=== PATIENT | female | born 1990 | race American Indian/Alaskan Native ===

== ENCOUNTER 2016-07-30 20:00 | Emergency (ER) | payer MEDICAID ==
[2016-07-30 22:05] LABS: Basophils % (Auto) 0.2 % (0.0-1.8); Eosinophils % (Auto) 0.3 % (0.0-4.3); Hematocrit 39.6 % (30.3-42.9); Hemoglobin 13.3 gm/dl (10.1-14.3); Mean Corpuscular HGB Conc 34 % (30-34); Mean Corpuscular Hemoglobin 29 pg (28-32); Mean Corpuscular Volume 85 fl (79-97); Platelet Count 276 K/mm3 (140-440); Red Blood Count 4.65 M/mm3 (3.65-5.03); Red Cell Distribution Width 14.8 % (13.2-15.2)
[2016-07-30 22:25] LABS: Anion Gap 18 mmol/L; Blood Urea Nitrogen 4 mg/dL (7-17); Calcium 9.7 mg/dL (8.4-10.2); Carbon Dioxide 20 mmol/L (22-30); Chloride 101.6 mmol/L (98-107); Glucose 85 mg/dL (65-100); Sodium 136 mmol/L (137-145)
--- NOTE | 2016-07-31 00:21 | Ultrasound Report ---
FINAL REPORT PROCEDURE: US OB \T\gt; = 14 WEEKS FETUS TECHNIQUE: Real-time limited sonographic examination was performed for evaluation of size, position, heartbeat, fluid volume for each fetus with image documentation (1 or more fetuses). CPT 99729 HISTORY: ABDOMINAL PAIN COMPARISON: No prior studies are available for comparison. FINDINGS: MATERNAL Uterus: Within normal limits . Cervix length: 4.3 cm. Internal Os: Closed . FETUS IUP: Single living intrauterine . Position: Breech. Placental position: Anterior, no previa, the placenta is low-lying. Amniotic fluid volume: Normal . Heart rate and rhythm: 153 BPM, Regular . anatomic survey: Not completed on this study. MEASUREMENTS BPD: 3.4 centimeter. HC: 13.5 centimeter. AC: 11.1 centimeter. FL: 2.6 centimeter. Mean Gestational Age (composite criteria): 17 weeks 0 days. Ratio biometry: Normal . Estimated Weight: 188 grams. Interval growth: No prior study. Estimated Due Date (earliest scan): 01/07/2017. IMPRESSION: 1. Single living intrauterine gestation at approximately 17 weeks 0 days. 2. EDC by US 01/07/2017.
[2016-07-31 01:18] LABS: Bacteria,Urine 2+ /HPF (Negative); Bilirubin,Urine NEG (Negative); Blood,Urine NEG (Negative); Ketones,Urine 20 mg/dL (Negative); Leukocyte Esterase,Urine LG (Negative); Mucus,Urine 2+ /HPF; Nitrite,Urine NEG (Negative); Urobilinogen,Urine < 2.0 mg/dL (<2.0)
--- NOTE | 2016-07-31 06:49 | Emergency Department Report ---
ED Dizziness HPI - General Chief Complaint: Dizziness Stated Complaint: LIGHT HEADED/DIZZINESS Time Seen by Provider: 07/31/16 06:38 Source: patient, RN notes reviewed Mode of arrival: Stretcher Limitations: No Limitations - History of Present Illness Initial Comments: 26-year-old female presents to the emergency department complaining of patient states she was at work yesterday evening at approximately 6:30 PM she began feeling extremely hot and then became lightheaded. Patient denies losing consciousness. Patient's symptoms resolved shortly afterward. Patient is approximately 17 weeks (A1) and came to the emergency department for further evaluation. She denies abdominal pain, nausea, vomiting, vaginal bleeding, vaginal discharge. There are no other complaints. MD Complaint: lightheadedness, near syncope -: Sudden, Last night Time: 18:30 Timing: sudden onset Description: lightheadedness History of Same: No History of Trauma: No Severity: mild Improves With: rest Worsens With: nothing Associated Symptoms: denies other symptoms - Related Data Previous Rx's Medication Instructions Recorded Last Taken Type Acetaminophen/Codeine 1 tab PO Q6H PRN #15 tab 05/02/14 Unknown Rx [Acetaminophen-Codeine #3 TAB] Cyclobenzaprine [Flexeril 10mg] 10 mg PO TID PRN #10 tablet 05/02/14 Unknown Rx Ibuprofen [Motrin] 800 mg PO Q8H PRN #20 tablet 05/02/14 Unknown Rx Allergies Allergy/AdvReac Type Severity Reaction Status Date / Time No Known Allergies Allergy Unverified 05/02/14 17:10 ED Review of Systems ROS: Stated complaint: LIGHT HEADED/DIZZINESS Other details as noted in HPI Comment: All other systems reviewed and negative Cardiovascular: syncope (lightheadedness, no loss of consciousness) ED Past Medical Hx - Past Medical History Previous Medical History?: No - Surgical History Past Surgical History?: No - Family History Family history: no significant - Social History Smoking Status: Never Smoker Substance Use Type: None - Medications Home Medications: Home Medications Medication Instructions Recorded Confirmed Last Taken Type Acetaminophen/Codeine 1 tab PO Q6H PRN #15 tab 05/02/14 Unknown Rx [Acetaminophen-Codeine #3 TAB] Cyclobenzaprine [Flexeril 10mg] 10 mg PO TID PRN #10 tablet 05/02/14 Unknown Rx Ibuprofen [Motrin] 800 mg PO Q8H PRN #20 tablet 05/02/14 Unknown Rx ED Physical Exam - General Limitations: No Limitations General appearance: alert, in no apparent distress - Head Head exam: Present: atraumatic, normocephalic - Eye Eye exam: Present: normal appearance, PERRL, EOMI - ENT ENT exam: Present: normal exam, normal orophraynx, mucous membranes moist - Neck Neck exam: Present: normal inspection, full ROM. Absent: tenderness - Respiratory Respiratory exam: Present: normal lung sounds bilaterally. Absent: respiratory distress - Cardiovascular Cardiovascular Exam: Present: regular rate, normal rhythm, normal heart sounds - GI/Abdominal GI/Abdominal exam: Present: soft, normal bowel sounds. Absent: distended, tenderness - Extremities Exam Extremities exam: Present: normal inspection, full ROM. Absent: tenderness - Back Exam Back exam: Present: normal inspection, full ROM. Absent: tenderness - Neurological Exam Neurological exam: Present: alert, oriented X3. Absent: motor sensory deficit - Skin Skin exam: Present: warm, dry, intact ED Course Vital Signs 07/30/16 07/31/16 21:35 01:37 Temperature 97.9 F 98.6 F Pulse Rate 76 70 Respiratory 18 18 Rate Blood Pressure 109/67 112/64 Blood Pressure 109/67 [Left] O2 Sat by Pulse 100 100 Oximetry ED Medical Decision Making - Lab Data Result diagrams: 07/30/16 21:54 07/30/16 21:54 - EKG Data -: EKG Interpreted by Ga EKG shows normal: sinus rhythm, axis, intervals, QRS complexes, ST-T waves Rate: normal - EKG Data When compared to previous EKG there are: previous EKG unavailable Interpretation: normal EKG - Radiology Data Radiology results: report reviewed ultrasound reveals a single, live intrauterine with estimated gestation age of 17 weeks 0 days. - Medical Decision Making Lab and imaging results reviewed and discussed with the patient. Patient has remained asymptomatic in the emergency department. 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 - Differential Diagnosis near syncope, dehydration, occult infection Critical care attestation.: If time is entered above; I have spent that time in minutes in the direct care of this critically ill patient, excluding procedure time. ED Disposition Clinical Impression: Near syncope Disposition: DISCHARGED TO HOME OR SELFCARE Is pt being admited?: No Condition: Stable Instructions: Near Syncope (ED) Additional Instructions: If symptoms worsen, or if new symptoms develop, return to the emergency department. Referrals: PRIMARY CARE,MD [Primary Care Provider] - 3-5 Days Time of Disposition: 06:49
[2016-07-31 07:04] VITALS: BP 112/57
== END 2016-07-31 07:04 | disposition home or self-care (01) ==
LOC: ED 20:00
DX: R55 Syncope and collapse (principal)
CPT/HCPCS: 36415; 76805; 80048; 81001; 84702; 85025; 93005; 93010

== ENCOUNTER 2016-12-28 20:01 | Inpatient (IN) | payer MEDICAID ==
[2016-12-28] MEDS ORDERED: POLYCILLIN/NS 2 GM/100 ML 2 GM/100 ML BAG IV ONE (20:51)
[2016-12-28] MEDS ORDERED: ePHEDrine SULFATE IV PRN (20:51)
[2016-12-28] MEDS ORDERED: SUBLIMAZE IV PRN (20:51)
[2016-12-28] MEDS ORDERED: BRETHINE SUB-Q PRN (20:51)
[2016-12-28] MEDS ORDERED: XYLOCAINE 2% INFILTRATI ONE (20:51)
[2016-12-28] MEDS ORDERED: PITOCin/NS 30 UNIT/500ML 30 UNITS/500 ML BAG IV SCH (21:00)
[2016-12-28] MEDS ORDERED: PITOCin/NS 20 UNIT/1000ML DRIP 20 UNITS/1,000 ML BAG IV SCH (21:00)
[2016-12-28] MEDS ORDERED: LACTATED RINGERS 1,000 ML IV SCH (21:00)
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
[2016-12-28 21:43] LABS: Hematocrit 38.1 % (30.3-42.9); Hemoglobin 12.6 gm/dl (10.1-14.3); Mean Corpuscular HGB Conc 33 % (30-34); Mean Corpuscular Hemoglobin 28 pg (28-32); Mean Corpuscular Volume 85 fl (79-97); Platelet Count 235 K/mm3 (140-440); Red Blood Count 4.48 M/mm3 (3.65-5.03); Red Cell Distribution Width 13.6 % (13.2-15.2); White Blood Count 10.2 K/mm3 (4.5-11.0)
[2016-12-29] MEDS: POLYCILLIN/NS 1 GM/50 ML 1 GM/50 ML BAG IV SCH ×2 (01:00→04:44)
--- NOTE | 2016-12-29 03:22 | Event Note ---
Date: 12/29/16 Unable to adequately trace heart rate and contractions with external monitors. With patient's permission, IUPC and FSE applied without difficulty in order to trace heart rate and contractions. Patient requests epidural. Cervix 5/100/-1. Will allow patient to have epidural. Reassuring heart rate tracing. Patient remains afebrile and her vital signs are stable.
[2016-12-29] MEDS ORDERED: ePHEDrine SULFATE ONE (03:28)
--- NOTE | 2016-12-29 03:36 | Event Note ---
Date: 12/29/16 Pitocin decreased to 8 milliunits per minute.
--- NOTE | 2016-12-29 03:51 | Event Note ---
Date: 12/29/16 Pitocin decreased to 6 milliunits per minute.
[2016-12-29] MEDS ORDERED: NARCAN 2 MG/2 ML IV PRN (04:20)
[2016-12-29] MEDS ORDERED: ePHEDrine SULFATE IV PRN (04:20)
--- NOTE | 2016-12-29 04:22 | Anesthesia Consultation ---
Anesthesia Consult and Med Hx Date of service: 12/29/16 - Airway ROM Head & Neck: Inadequate Mental/Hyoid Distance: Adequate Intubation Access Assessment: Possibly Difficult - Pre-Operative Health Status ASA Pre-Surgery Classification: ASA3, Emergency Proposed Anesthetic Plan: Epidural, Spinal - Pulmonary Hx Asthma: No COPD: No Hx Pneumonia: No - Cardiovascular System Hx Hypertension: No - Central Nervous System Hx Seizures: No Hx Psychiatric Problems: No - Endocrine Hx Renal Disease: No Hx End Stage Renal Disease: No Hx Hypothyroidism: No Hx Hyperthyroidism: No - Hematic Hx Anemia: No Hx Sickle Cell Disease: No - Other Systems Hx Alcohol Use: No Hx Obesity: Yes (morbid)
[2016-12-29] MEDS ORDERED: fentaNYL-BUPIV 2 MCG/ML-0.125% 200 MCG/100 ML BAG EPIDURAL ONE (04:23)
[2016-12-29] MEDS ORDERED: fentaNYL-BUPIV 2 MCG/ML-0.125% 200 MCG/100 ML BAG EPIDURAL SCH (05:00)
[2016-12-29] MEDS ORDERED: TUCKS PAD TP PRN (05:45)
[2016-12-29] MEDS ORDERED: LANSINOH TP PRN (05:45)
[2016-12-29] MEDS ORDERED: TYLENOL PO PRN (05:45)
--- NOTE | 2016-12-29 05:55 | Procedure Note ---
OB Delivery Note - Vaginal Delivery presentation: vertex Delivery position: OA Intrapartum events: none Delivery augmentation: pitocin Delivery monitor: external FHT, external uterine, internal FHT, internal uterine Route of delivery: Delivery placenta: spontaneous Delivery cord: 3 umbilical vessels Episiotomy: none Delivery laceration: none Anesthesia: epidural Delivery comments: Spontaneous vaginal delivery of liveborn female weighing 5 lbs. 11.5 oz. over intact perineum with apgars of 8/9. Epidural anesthesia. Baby was placed immediately on mother's chest after . Spontaneous cry and respirations; baby was bulb suctioned, dried and stimulated. 3 vessel cord was double clamped and cut and baby was taken to warmer for further evaluation by NICU team due to small size of baby. Spontaneous delivery of intact placenta and membranes by Freitas mechanism. EBL 200 ml. Pitocin to IV fluids after delivery of placenta. Fundus firm and midline. No lacerations noted. Sponge count correct. Mother and baby stable in birthing room.
[2016-12-29] MEDS ORDERED: SODIUM CHLORIDE FLUSH SYRINGE 10 ML IV PRN (06:00)
[2016-12-29] MEDS: MOTRIN PO SCH ×2 (11:30→19:38)
[2016-12-29] MEDS ORDERED: NORCO 5/325 PO PRN (11:57)
[2016-12-29] MEDS ORDERED: Fluarix Quad 2017-2018(36 MOS+) IM ONE (12:00)
[2016-12-30] MEDS: MOTRIN PO SCH ×4 (01:30→18:57)
[2016-12-30] MEDS ORDERED: BOOSTRIX IM ONE (06:00)
[2016-12-30 07:25] LABS: Hematocrit 34.6 % (30.3-42.9); Hemoglobin 11.4 gm/dl (10.1-14.3)
--- NOTE | 2016-12-30 09:28 | Progress Note ---
Assessment and Plan A: PPD #1 stable P: Discharge home in am Subjective - Subjective Date of service: 12/30/16 Principal diagnosis: Patient reports: appetite normal Paron: doing well Objective - Vital Signs Latest vital signs: Vital Signs Temp Pulse Resp BP BP Pulse Ox 12/30/16 00:25 98.3 F 70 18 125/82 12/29/16 17:25 98.0 F 81 20 121/77 100 Intake and Output 12/29/16 12/30/16 12/30/16 22:59 06:59 14:59 Intake Total 920 480 Output Total 1100 480 Balance -180 0 Intake: Oral 920 480 Output: Urine 1100 480 Void 1100 480 Other: Total, Intake Amount 200 240 Total, Output Amount 400 240 - Exam Breasts: Present: deferred Cardiovascular: Present: Regular rate Lungs: Present: Clear to auscultation Abdomen: Present: soft Vulva: both: normal Uterus: Present: fundal height below umbilicus Extremities: Present: normal Deep Tendon Reflex Grade: Normal +2
--- NOTE | 2016-12-30 09:29 | Discharge Summary ---
Providers - Providers Date of Admission: 12/28/16 21:01 Date of discharge: 12/31/16 Attending physician: BIANCA CRUZ MD Primary care physician: BIANCA CRUZ MD Hospitalization Reason for admission: active labor Delivery: Episiotomy: none Laceration: none complications: none baby: female Condition at discharge: Good Disposition: DC-01 TO HOME OR SELFCARE Plan - Provider Discharge Summary Activity: routine, no sex for 6 weeks, no strenuous exercise Diet: routine Instructions: routine Additional instructions: [] Smoking cessation referral if applicable(refer to patient education folder for contact #) [] Refer to [facility] Booklet Call your doctor immediately for: * Fever > 100.5 * Heavy vaginal bleeding ( >1 pad per hour) * Severe persistent headache * Shortness of breath * Reddened, hot, painful area to leg or breast * Drainage or odor from incision. * Keep incision clean and dry at all times and follow doctor's instructions regarding bathing/showering - Follow up plan Follow up: BIANCA CRUZ MD [Primary Care Provider] - 6 Weeks
--- NOTE | 2016-12-30 11:49 | Progress Note ---
Subjective Date of service: 12/30/16 Principal diagnosis: Interval history: 1st day after normal vaginal delivery Patient is in the bed, comfortable. pain is well under control. Ambulated well. No residual neurological deficit. No anesthesia complications Objective - Constitutional Vitals: Vital Signs - 12hr 12/30/16 12/30/16 12/30/16 00:12 00:25 08:39 Temperature 98.3 F 97.5 F L Pulse Rate 70 77 Respiratory 18 18 Rate Blood Pressure 125/82 126/80 Blood Pressure 125/82 [Right] O2 Sat by Pulse 100 Oximetry - Labs CBC & Chem 7: 12/30/16 07:13
[2016-12-30] MEDS ORDERED: Fluarix Quad 2017-2018(36 MOS+) IM ONE (12:00)
[2016-12-30 19:14] VITALS: BP 128/78
[2016-12-31] MEDS: MOTRIN PO SCH (06:10)
== END 2016-12-31 10:00 | disposition home or self-care (01) | DRG 775 ==
LOC: TRG 20:01 → LD 21:01 → OB 12-29 08:56
PROVIDERS: ADMIT Obstetrics & Gynecology; ATTEND Obstetrics & Gynecology
PROC: 10E0XZZ Delivery of Products of Conception, External Approach (ICD-10-PCS; principal; 2016-12-29)
PROC: 3E0234Z Introduction of Serum, Toxoid and Vaccine into Muscle, Percutaneous Approach (ICD-10-PCS; 2016-12-29)
PROC: 3E0S3BZ Introduction of Anesthetic Agent into Epidural Space, Percutaneous Approach (ICD-10-PCS; 2016-12-29)
PROC: 00HU33Z Insertion of Infusion Device into Spinal Canal, Percutaneous Approach (ICD-10-PCS; 2016-12-29)
DX: O99.824 Streptococcus B carrier state complicating childbirth (principal); Z68.41 Body mass index [BMI] 40.0-44.9, adult; Z3A.39 39 weeks gestation of pregnancy; Z37.0 Single live birth; Z23 Encounter for immunization; O99.214 Obesity complicating childbirth; E66.01 Morbid (severe) obesity due to excess calories
CPT/HCPCS: 36415; 85014; 85018; 85027; 86850; 86900; 86901; 88307; 90471; 90686; J0290; J2590; J3010; J7120

== ENCOUNTER 2021-04-10 10:06 | Emergency (ER) | payer MEDICAID ==
[2021-04-10] MEDS ORDERED: SODIUM CHLORIDE 0.9% 1000 ML 1,000 ML IV ONE (12:12)
[2021-04-10] MEDS ORDERED: ONDANSETRON 4 MG/2 ML INJ IV ONE (12:12)
--- NOTE | 2021-04-10 12:15 | Emergency Department Report ---
ED General Adult HPI - General Chief complaint: Upper Respiratory Infection Stated complaint: FLU LIKE SYMPTOMS Time Seen by Provider: 04/10/21 12:02 Source: patient Mode of arrival: Ambulatory Limitations: No Limitations - History of Present Illness Initial comments: 30-year-old -[place] female patient presents with complaints of fever, cough, and nausea and vomiting for the past 5 days. She denies any hematemesis/coffee-ground emesis or abdominal pain. She reports a fever of 101.5 on Thursday/Thursday that resolved with OTC medication. No past medical history per patient. She reports she had a rapid and PCR COVID test performed that were both negative. No hemoptysis, shortness of breath, chest pain, melena/hematochezia, or urinary symptoms per patient. She also denies any past medical history. Patient states she is unable to keep any food down and feels weak from being hungry. Severity scale (0 -10): 0 - Related Data Previous Rx's Medication Instructions Recorded Last Taken Type Acetaminophen/Codeine 1 tab PO Q6H PRN #15 tab 05/02/14 Unknown Rx [Acetaminophen-Codeine #3 TAB] Cyclobenzaprine [Flexeril 10mg] 10 mg PO TID PRN #10 tablet 05/02/14 Unknown Rx Ibuprofen [Motrin] 800 mg PO Q8H PRN #20 tablet 05/02/14 Unknown Rx Benzonatate 200 mg PO TID PRN #20 cap 04/10/21 Unknown Rx Ciprofloxacin HCl 500 mg PO BID 7 Days #14 tab 04/10/21 Unknown Rx Famotidine [Pepcid] 20 mg PO BID 7 Days #14 tablet 04/10/21 Unknown Rx Ondansetron [Zofran Odt] 4 mg PO Q8HR PRN 10 Days #15 04/10/21 Unknown Rx tab.rapdis Allergies Allergy/AdvReac Type Severity Reaction Status Date / Time No Known Allergies Allergy Verified 12/28/16 20:05 ED Review of Systems ROS: Stated complaint: FLU LIKE SYMPTOMS Other details as noted in HPI Constitutional: see HPI Respiratory: see HPI Cardiovascular: as per HPI Gastrointestinal: as per HPI. denies: diarrhea Genitourinary: as per HPI Skin: denies: rash, lesions, change in color Neurological: denies: headache ED Past Medical Hx - Past Medical History Hx Hypertension: No Hx Congestive Heart Failure: No Hx Diabetes: No Hx Deep Vein Thrombosis: No Hx Renal Disease: No Hx Sickle Cell Disease: No Hx Seizures: No Hx Asthma: No Hx COPD: No Hx HIV: No - Social History Smoking Status: Never Smoker - Medications Home Medications: Home Medications Medication Instructions Recorded Confirmed Last Taken Type Acetaminophen/Codeine 1 tab PO Q6H PRN #15 tab 05/02/14 12/29/16 Unknown Rx [Acetaminophen-Codeine #3 TAB] Cyclobenzaprine [Flexeril 10mg] 10 mg PO TID PRN #10 tablet 05/02/14 12/29/16 Unknown Rx Ibuprofen [Motrin] 800 mg PO Q8H PRN #20 tablet 05/02/14 12/29/16 Unknown Rx Benzonatate 200 mg PO TID PRN #20 cap 04/10/21 Unknown Rx Ciprofloxacin HCl 500 mg PO BID 7 Days #14 tab 04/10/21 Unknown Rx Famotidine [Pepcid] 20 mg PO BID 7 Days #14 tablet 04/10/21 Unknown Rx Ondansetron [Zofran Odt] 4 mg PO Q8HR PRN 10 Days #15 04/10/21 Unknown Rx tab.rapdis ED Physical Exam - General Limitations: No Limitations General appearance: alert, in no apparent distress, obese - Head Head exam: Present: atraumatic, normocephalic - Eye Eye exam: Present: normal appearance - Neck Neck exam: Present: normal inspection - Respiratory Respiratory exam: Present: normal lung sounds bilaterally. Absent: respiratory distress - Cardiovascular Cardiovascular Exam: Present: regular rate, normal rhythm - GI/Abdominal GI/Abdominal exam: Present: soft, normal bowel sounds. Absent: distended, tenderness, guarding, rebound, rigid - Back Exam Back exam: Absent: CVA tenderness (R), CVA tenderness (L) - Neurological Exam Neurological exam: Present: alert, oriented X3, normal gait - Psychiatric Psychiatric exam: Present: normal affect, normal mood - Skin Skin exam: Present: warm, dry, intact, normal color. Absent: rash ED Course Vital Signs 04/10/21 04/10/21 04/10/21 11:50 12:24 15:51 Temperature 98.4 F 98.4 F Pulse Rate 60 64 Respiratory 16 18 Rate Blood Pressure 124/83 124/68 [Right] O2 Sat by Pulse 99 100 Oximetry ED Medical Decision Making - Lab Data Result diagrams: 04/10/21 12:16 04/10/21 12:16 - Radiology Data Radiology results: report reviewed CHEST 2 VIEWS INDICATION: cough, fever. COMPARISON: none FINDINGS: Support devices: None. Heart: Within normal limits. Lungs/pleura: No acute air space or interstitial disease. No pneumothorax. Additional findings: None. IMPRESSION: No acute findings. - Medical Decision Making 30-year-old -[place] female patient presents with complaints of fever, cough, and nausea and vomiting for the past 5 days. She denies any hematemesis/coffee-ground emesis or abdominal pain. She reports a fever of 101.5 on Thursday/Thursday that resolved with OTC medication. No past medical history per patient. She reports she had a rapid and PCR COVID test performed that were both negative. No hemoptysis, shortness of breath, chest pain, melena/hematochezia, or urinary symptoms per patient. She also denies any past medical history. Patient states she is unable to keep any food down and feels weak from being hungry. Labs show UTI. Patient complains of mild lower back pain, however no CVA tenderness is noted. White count is normal patient is afebrile nontachycardic. Nausea vomiting controlled and patient is tolerating fluids and fluids p.o. She is well-appearing, vitals within normal limits, she is stable for discharge home. Recommend follow-up with PCP in 3 to 5 days. Strict return precautions were discussed in detail with patient who verbalizes understanding Critical care attestation.: If time is entered above; I have spent that time in minutes in the direct care of this critically ill patient, excluding procedure time. ED Disposition Clinical Impression: Viral syndrome, UTI (urinary tract infection) Disposition: HOME / SELF CARE / HOMELESS Is pt being admited?: No Condition: Stable Instructions: Urinary Tract Infection, Adult, [id number], Viral Respiratory Infection Prescriptions: Benzonatate 200 mg PO TID PRN #20 cap PRN Reason: Cough Ciprofloxacin HCl 500 mg PO BID 7 Days #14 tab Famotidine [Pepcid] 20 mg PO BID 7 Days #14 tablet Ondansetron [Zofran Odt] 4 mg PO Q8HR PRN 10 Days #15 tab.rapdis PRN Reason: Nausea Referrals: PRIMARY CARE, [Primary Care Provider] - 3-[address] [facility] [Provider Group] - 3-5 Days Forms: Work/School Release Form(ED)
[2021-04-10 13:38] LABS: Bacteria,Urine 4+ /HPF (Negative); Bilirubin,Urine NEG (Negative); Blood,Urine SM (Negative); Color,Urine Amber (Yellow); Urobilinogen,Urine < 2.0 mg/dL (<2.0)
[2021-04-10 14:05] LABS: Blood Urea Nitrogen 9 mg/dL (7-17); Calcium 9.2 mg/dL (8.4-10.2); Hemolysis Index 76
[2021-04-10 14:08] LABS: Eosinophils # (Auto) 0.1 K/mm3 (0.0-0.4); Eosinophils % (Auto) 1.2 % (0.0-4.3); Hematocrit 44.6 % (30.3-42.9); Hemoglobin 14.2 gm/dl (10.1-14.3); Lymphocytes # (Auto) 2.4 K/mm3 (1.2-5.4); Lymphocytes % (Auto) 50.1 % (13.4-35.0); Mean Corpuscular HGB Conc 32 % (30-34); Mean Corpuscular Volume 86 fl (79-97); Monocytes # (Auto) 0.5 K/mm3 (0.0-0.8); Monocytes % (Auto) 9.4 % (0.0-7.3); Platelet Count 296 K/mm3 (140-440); Red Blood Count 5.22 M/mm3 (3.65-5.03); Red Cell Distribution Width 14.5 % (13.2-15.2)
[2021-04-10 14:10] LABS: BUN/Creatinine Ratio 13
--- NOTE | 2021-04-10 15:05 | XRay Report ---
CHEST 2 VIEWS INDICATION: cough, fever. COMPARISON: none FINDINGS: Support devices: None. Heart: Within normal limits. Lungs/pleura: No acute air space or interstitial disease. No pneumothorax. Additional findings: None. IMPRESSION: No acute findings. Signer Name: Noah Ann Jr, MD Signed: 04/10/2021 3:01 PM Workstation Name: [id number]
[2021-04-10 15:51] VITALS: BP 124/68
== END 2021-04-10 15:51 | disposition home or self-care (01) ==
LOC: ED 10:06
DX: B34.9 Viral infection, unspecified (principal); N39.0 Urinary tract infection, site not specified; Z79.899 Other long term (current) drug therapy
CPT/HCPCS: 36415; 71046; 80048; 81001; 84702; 85025; 87086; 96361; 96374; 99284; J2405; J7030; Q0162

== ENCOUNTER 2021-06-13 14:48 | Emergency (ER) | payer MEDICAID, OTHER ==
[2021-06-13 15:01] VITALS: BP 133/82
--- NOTE | 2021-06-13 15:31 | Emergency Department Report ---
ED General Adult HPI - General Chief complaint: Dyspnea/Respdistress Stated complaint: COLD PUI?: No Time Seen by Provider: 06/13/21 15:11 Source: patient, RN notes reviewed Mode of arrival: Ambulatory Limitations: No Limitations - History of Present Illness Initial comments: The patient is a 31-year-old female who states that she is not , who reports a history of COVID-19 diagnosed a few months ago, who occasionally consumes tobacco products, who presents to the ER with 2 days of coughing, sneezing, and sore throat. She denies physical pain. She denies loss of taste and smell. She is also requesting a work excuse -: days(s) Consistency: intermittent Improves with: none Worsens with: none Associated Symptoms: denies other symptoms - Related Data Previous Rx's Medication Instructions Recorded Last Taken Type Ibuprofen [Motrin] 800 mg PO Q8H PRN #20 tablet 05/02/14 Unknown Rx Benzonatate 200 mg PO TID PRN #20 cap 04/10/21 Unknown Rx Famotidine [Pepcid] 20 mg PO BID 7 Days #14 tablet 04/10/21 Unknown Rx Ondansetron [Zofran Odt] 4 mg PO Q8HR PRN 10 Days #15 04/10/21 Unknown Rx tab.rapdis Albuterol Sulfate [Proair 90 mcg IH Q4HR PRN #2 aer.pow.ba 06/13/21 Unknown Rx Respiclick] Benzonatate [Tessalon Perles] 100 mg PO Q8HR PRN #30 capsule 06/13/21 Unknown Rx Cetirizine HCl [Zyrtec 10mg tab] 10 mg PO QDAY #30 tab 06/13/21 Unknown Rx Nicotine Polacrilex [Nicotine Gum] 4 mg BC PRN #1 pack 06/13/21 Unknown Rx Allergies Allergy/AdvReac Type Severity Reaction Status Date / Time No Known Allergies Allergy Verified 12/28/16 20:05 ED Review of Systems ROS: Stated complaint: COLD Other details as noted in HPI Comment: All other systems reviewed and negative ENT: congestion. denies: throat pain Respiratory: cough ED Past Medical Hx - Past Medical History Hx Hypertension: No Hx Congestive Heart Failure: No Hx Diabetes: No Hx Deep Vein Thrombosis: No Hx Renal Disease: No Hx Sickle Cell Disease: No Hx Seizures: No Hx Asthma: No Hx COPD: No Hx HIV: No - Social History Smoking Status: Never Smoker - Medications Home Medications: Home Medications Medication Instructions Recorded Confirmed Last Taken Type Ibuprofen [Motrin] 800 mg PO Q8H PRN #20 tablet 05/02/14 12/29/16 Unknown Rx Benzonatate 200 mg PO TID PRN #20 cap 04/10/21 Unknown Rx Famotidine [Pepcid] 20 mg PO BID 7 Days #14 tablet 04/10/21 Unknown Rx Ondansetron [Zofran Odt] 4 mg PO Q8HR PRN 10 Days #15 04/10/21 Unknown Rx tab.rapdis Albuterol Sulfate [Proair 90 mcg IH Q4HR PRN #2 aer.pow.ba 06/13/21 Unknown Rx Respiclick] Benzonatate [Tessalon Perles] 100 mg PO Q8HR PRN #30 capsule 06/13/21 Unknown Rx Cetirizine HCl [Zyrtec 10mg tab] 10 mg PO QDAY #30 tab 06/13/21 Unknown Rx Nicotine Polacrilex [Nicotine Gum] 4 mg BC PRN #1 pack 06/13/21 Unknown Rx ED Physical Exam - General Limitations: No Limitations General appearance: alert, in no apparent distress, obese - Head Head exam: Present: atraumatic, normocephalic - Eye Eye exam: Present: normal appearance, EOMI. Absent: nystagmus - ENT ENT exam: Present: normal exam, normal orophraynx, mucous membranes moist, normal external ear exam - Neck Neck exam: Present: normal inspection, full ROM. Absent: tenderness, meningismus - Respiratory Respiratory exam: Present: normal lung sounds bilaterally. Absent: respiratory distress, wheezes, rales, rhonchi, stridor, decreased breath sounds - Cardiovascular Cardiovascular Exam: Present: regular rate, normal rhythm, normal heart sounds. Absent: bradycardia, tachycardia, irregular rhythm, systolic murmur, diastolic murmur, rubs, gallop - GI/Abdominal GI/Abdominal exam: Present: soft, normal bowel sounds. Absent: distended, tenderness, guarding, rebound, rigid, pulsatile mass - Extremities Exam Extremities exam: Present: normal inspection, full ROM, other (2+ pulses noted in the bilateral upper and lower extremities. There is no palpable cord. negative Homans sign. Muscular compartments are soft. The pelvis is stable.). Absent: pedal edema, calf tenderness - Back Exam Back exam: Present: normal inspection, full ROM. Absent: tenderness, CVA tenderness (R), CVA tenderness (L), paraspinal tenderness, vertebral tenderness - Neurological Exam Neurological exam: Present: alert, oriented X3, normal gait, other (No facial droop. Tongue midline. Extraocular movements intact bilaterally. Facial sensation intact to light touch in V1, V2, V3 distribution bilaterally. 5 and a 5 strength in 4 extremities. Sensation intact to light touch in 4 extremities.). Absent: motor sensory deficit - Psychiatric Psychiatric exam: Present: normal affect, normal mood - Skin Skin exam: Present: warm, dry, intact, normal color. Absent: rash ED Course Vital Signs 06/13/21 15:00 Temperature 98.0 F Pulse Rate 90 Respiratory 18 Rate Blood Pressure 133/82 [Right] O2 Sat by Pulse 99 Oximetry ED Medical Decision Making - Lab Data Vital Signs 06/13/21 15:00 Temperature 98.0 F Pulse Rate 90 Respiratory 18 Rate Blood Pressure 133/82 [Right] O2 Sat by Pulse 99 Oximetry - Medical Decision Making Differential diagnosis, including but not limited to: Cold, viral syndrome, seasonal allergies, encounter for work excuse Assessment and plan: 40-year-old female, who is afebrile, with reassuring vital signs, with a benign and unremarkable physical examination, likely presenting with seasonal allergies with cold, also requesting a work excuse off through Thursday. Patient educated that she does not have an emergent medical condition present at this time. Tobacco cessation counseling performed. Discharged with albuterol as needed, Tessalon Perles as needed, Zyrtec, nicotine gum, work excuse through tomorrow, instructions to follow-up with outpatient primary care, recommend outpatient COVID-19 test, not hypoxic at this time, with clear lungs. This patient does not appear to have an emergent medical condition present at this time Critical care attestation.: If time is entered above; I have spent that time in minutes in the direct care of this critically ill patient, excluding procedure time. ED Disposition Clinical Impression: Sneezing, Coughing, Encounter for medical screening examination, Encounter for tobacco use cessation counseling Disposition: HOME / SELF CARE / HOMELESS Is pt being admited?: No Does the pt Need Aspirin: No Condition: Good Additional Instructions: Discontinue tobacco consumption. Take the medications as prescribed. Use salt water gargles liberally [id number]. Follow-up with a primary care doctor within the next month. Please return to the emergency room right away with new pain, worsened pain, migration of pain, projectile vomiting, change in mental status, confusion, inability tolerate liquid feeds, new, worsened or different symptoms not present on the initial emergency room evaluation Referrals: [facility] [Provider Group] - 3-5 Days Forms: Work/School Release Form(ED)
== END 2021-06-13 15:55 | disposition home or self-care (01) ==
LOC: ED 14:48
DX: R06.7 Sneezing (principal); R05.9 Cough, unspecified; Z79.899 Other long term (current) drug therapy
CPT/HCPCS: 99282

== ENCOUNTER 2021-08-13 08:04 | Emergency (ER) | payer SELFPAY ==
[2021-08-13] MEDS ORDERED: dexAMETHasone 4 MG/ML VIAL IM ONE (09:49)
--- NOTE | 2021-08-13 09:50 | Emergency Department Report ---
ED Back Pain/Injury HPI - General Chief Complaint: Back Pain/Injury Stated Complaint: SHARP RT LEG PAIN Time Seen by Provider: 08/13/21 09:48 Source: patient Limitations: No Limitations - History of Present Illness Initial Comments: Patient is a 31-year-old female that comes to the ER with right leg pain consistent with that of sciatica. She has a positive straight leg raise on exam. She has no history of trauma or fall. She is obese. She is ambulatory and neurologically intact on exam -: Gradual, days(s) Similar Symptoms Previously: No Place: home, work Radiation: none Consistency: intermittent Improves With: other (Not working) Worsens With: other (Working at her job where she lives) Associated Symptoms: denies other symptoms - Related Data Previous Rx's Medication Instructions Recorded Last Taken Type Ibuprofen [Motrin] 800 mg PO Q8H PRN #20 tablet 05/02/14 Unknown Rx Benzonatate 200 mg PO TID PRN #20 cap 04/10/21 Unknown Rx Famotidine [Pepcid] 20 mg PO BID 7 Days #14 tablet 04/10/21 Unknown Rx Ondansetron [Zofran Odt] 4 mg PO Q8HR PRN 10 Days #15 04/10/21 Unknown Rx tab.rapdis Albuterol Sulfate [Proair 90 mcg IH Q4HR PRN #2 aer.pow.ba 06/13/21 Unknown Rx Respiclick] Benzonatate [Tessalon Perles] 100 mg PO Q8HR PRN #30 capsule 06/13/21 Unknown Rx Cetirizine HCl [Zyrtec 10mg tab] 10 mg PO QDAY #30 tab 06/13/21 Unknown Rx Nicotine Polacrilex [Nicotine Gum] 4 mg BC PRN #1 pack 06/13/21 Unknown Rx Cyclobenzaprine [Flexeril] 10 mg PO TID PRN #10 tablet 08/13/21 Unknown Rx Ibuprofen [Motrin] 800 mg PO Q8HR PRN #30 tablet 08/13/21 Unknown Rx methylPREDNISolone [Medrol 4MG 4 mg PO FS #1 tab.ds.pk 08/13/21 Unknown Rx DOSEPAK (21 tabs)] Allergies Allergy/AdvReac Type Severity Reaction Status Date / Time No Known Allergies Allergy Verified 12/28/16 20:05 ED Review of Systems ROS: Stated complaint: SHARP RT LEG PAIN Other details as noted in HPI Comment: All other systems reviewed and negative ED Past Medical Hx - Past Medical History Previous Medical History?: No Hx Hypertension: No Hx Congestive Heart Failure: No Hx Diabetes: No Hx Deep Vein Thrombosis: No Hx Renal Disease: No Hx Sickle Cell Disease: No Hx Seizures: No Hx Asthma: No Hx COPD: No Hx HIV: No - Surgical History Past Surgical History?: No - Family History Family history: no significant - Social History Smoking Status: Never Smoker Substance Use Type: None - Medications Home Medications: Home Medications Medication Instructions Recorded Confirmed Last Taken Type Ibuprofen [Motrin] 800 mg PO Q8H PRN #20 tablet 05/02/14 12/29/16 Unknown Rx Benzonatate 200 mg PO TID PRN #20 cap 04/10/21 Unknown Rx Famotidine [Pepcid] 20 mg PO BID 7 Days #14 tablet 04/10/21 Unknown Rx Ondansetron [Zofran Odt] 4 mg PO Q8HR PRN 10 Days #15 04/10/21 Unknown Rx tab.rapdis Albuterol Sulfate [Proair 90 mcg IH Q4HR PRN #2 aer.pow.ba 06/13/21 Unknown Rx Respiclick] Benzonatate [Tessalon Perles] 100 mg PO Q8HR PRN #30 capsule 06/13/21 Unknown Rx Cetirizine HCl [Zyrtec 10mg tab] 10 mg PO QDAY #30 tab 06/13/21 Unknown Rx Nicotine Polacrilex [Nicotine Gum] 4 mg BC PRN #1 pack 06/13/21 Unknown Rx Cyclobenzaprine [Flexeril] 10 mg PO TID PRN #10 tablet 08/13/21 Unknown Rx Ibuprofen [Motrin] 800 mg PO Q8HR PRN #30 tablet 08/13/21 Unknown Rx methylPREDNISolone [Medrol 4MG 4 mg PO FS #1 tab.ds.pk 08/13/21 Unknown Rx DOSEPAK (21 tabs)] ED Physical Exam - General Limitations: No Limitations General appearance: alert, in no apparent distress - Head Head exam: Present: atraumatic, normocephalic - Eye Eye exam: Present: normal appearance - ENT ENT exam: Present: mucous membranes moist - Neck Neck exam: Present: normal inspection - Respiratory Respiratory exam: Present: normal lung sounds bilaterally. Absent: respiratory distress - Cardiovascular Cardiovascular Exam: Present: regular rate, normal rhythm. Absent: systolic murmur, diastolic murmur, rubs, gallop - GI/Abdominal GI/Abdominal exam: Present: soft, normal bowel sounds - Extremities Exam Extremities exam: Present: normal inspection - Back Exam Back exam: Present: normal inspection - Neurological Exam Neurological exam: Present: alert, oriented X3 - Psychiatric Psychiatric exam: Present: normal affect, normal mood - Skin Skin exam: Present: warm, dry, intact, normal color. Absent: rash ED Medical Decision Making - Medical Decision Making Vital signs normal as documented manually by RN Positive right straight leg raise Neurovascularly intact Medicated with IM Decadron Educated on care management of sciatica as well as proper body mechanics Discharge home with discharge plan of care including diet, activity, medications and follow-up. Patient verbalizes understanding of plan of care - Differential Diagnosis Sciatica Critical care attestation.: If time is entered above; I have spent that time in minutes in the direct care of this critically ill patient, excluding procedure time. ED Disposition Clinical Impression: Sciatica Qualifiers: Laterality: right Qualified Code(s): M54.31 - Sciatica, right side Disposition: HOME / SELF CARE / HOMELESS Is pt being admited?: No Does the pt Need Aspirin: No Condition: Stable Instructions: Sciatica Additional Instructions: Warm baths with Epson salts will help Medications as ordered today Good body Mechanics as we discussed Diet and activity as tolerated Follow-up with PCP Have given you referral below Referrals: AJIT MCGREGOR MD [Staff Physician] - 3-5 Days Forms: Work/School Release Form(ED) Time of Disposition: 09:50
[2021-08-13 11:14] VITALS: BP 108/60
== END 2021-08-13 11:15 | disposition home or self-care (01) ==
LOC: ED 08:04
DX: M54.31 Sciatica, right side (principal)
CPT/HCPCS: 96372; 99282; J1100

== ENCOUNTER 2021-08-28 15:28 | Emergency (ER) | payer SELFPAY ==
[2021-08-28] MEDS ORDERED: methylPREDNISolone ACETATE 80 MG/1 ML INJ IM ONE (16:28)
--- NOTE | 2021-08-28 16:28 | Emergency Department Report ---
ED General Adult HPI - General Chief complaint: Medical Clearance Stated complaint: COLD SX/SCIATIC NERVE PAIN LEG Time Seen by Provider: 08/28/21 16:25 Source: patient Mode of arrival: Ambulatory Limitations: No Limitations - History of Present Illness Initial comments: Patient is a 31-year-old female that comes to the emergency room with her 2 children. She brings to 2 children further URI symptoms. She states that she had URI symptoms but they are now better. She states that she is here with her right sciatica pain. She has been seen here in the past. And reports being out of medications. She denies any signs or symptoms of cauda equina. She denies any new trauma. She has not followed up as instructed. Patient is ambulatory, nontoxic [id number] with normal vital signs on arrival -: Gradual, week(s) Location: lower extremity Quality: burning Consistency: intermittent Improves with: immobilization Worsens with: movement Associated Symptoms: denies other symptoms Treatments Prior to Arrival: none - Related Data Previous Rx's Medication Instructions Recorded Last Taken Type Famotidine [Pepcid] 20 mg PO BID 7 Days #14 tablet 04/10/21 Unknown Rx Albuterol Sulfate [Proair 90 mcg IH Q4HR PRN #2 aer.pow.ba 06/13/21 Unknown Rx Respiclick] Cetirizine HCl [Zyrtec 10mg tab] 10 mg PO QDAY #30 tab 06/13/21 Unknown Rx Nicotine Polacrilex [Nicotine Gum] 4 mg BC PRN #1 pack 06/13/21 Unknown Rx Cyclobenzaprine [Flexeril] 10 mg PO TID PRN #10 tablet 08/28/21 Unknown Rx Cyclobenzaprine [Flexeril] 10 mg PO TID PRN #10 tablet 08/28/21 Unknown Rx Ibuprofen [Motrin] 800 mg PO Q8HR PRN #30 tablet 08/28/21 Unknown Rx Allergies Allergy/AdvReac Type Severity Reaction Status Date / Time No Known Allergies Allergy Verified 08/28/21 15:33 ED Review of Systems ROS: Stated complaint: COLD SX/SCIATIC NERVE PAIN LEG Other details as noted in HPI Comment: All other systems reviewed and negative ED Past Medical Hx - Past Medical History Previous Medical History?: Yes Hx Hypertension: No Hx Congestive Heart Failure: No Hx Diabetes: No Hx Deep Vein Thrombosis: No Hx Renal Disease: No Hx Sickle Cell Disease: No Hx Seizures: No Hx Asthma: No Hx COPD: No Hx HIV: No - Surgical History Past Surgical History?: No - Family History Family history: no significant - Social History Smoking Status: Never Smoker Substance Use Type: None - Medications Home Medications: Home Medications Medication Instructions Recorded Confirmed Last Taken Type Famotidine [Pepcid] 20 mg PO BID 7 Days #14 tablet 04/10/21 Unknown Rx Albuterol Sulfate [Proair 90 mcg IH Q4HR PRN #2 aer.pow.ba 06/13/21 Unknown Rx Respiclick] Cetirizine HCl [Zyrtec 10mg tab] 10 mg PO QDAY #30 tab 06/13/21 Unknown Rx Nicotine Polacrilex [Nicotine Gum] 4 mg BC PRN #1 pack 06/13/21 Unknown Rx Cyclobenzaprine [Flexeril] 10 mg PO TID PRN #10 tablet 08/28/21 Unknown Rx Cyclobenzaprine [Flexeril] 10 mg PO TID PRN #10 tablet 08/28/21 Unknown Rx Ibuprofen [Motrin] 800 mg PO Q8HR PRN #30 tablet 08/28/21 Unknown Rx ED Physical Exam - General Limitations: No Limitations General appearance: alert, in no apparent distress - Head Head exam: Present: atraumatic, normocephalic - Eye Eye exam: Present: normal appearance - ENT ENT exam: Present: mucous membranes moist - Neck Neck exam: Present: normal inspection - Respiratory Respiratory exam: Present: normal lung sounds bilaterally. Absent: respiratory distress - Cardiovascular Cardiovascular Exam: Present: regular rate, normal rhythm. Absent: systolic murmur, diastolic murmur, rubs, gallop - GI/Abdominal GI/Abdominal exam: Present: soft, normal bowel sounds - Extremities Exam Extremities exam: Present: normal inspection - Back Exam Back exam: Present: normal inspection - Neurological Exam Neurological exam: Present: alert, oriented X3 - Psychiatric Psychiatric exam: Present: normal affect, normal mood - Skin Skin exam: Present: warm, dry, intact, normal color. Absent: rash ED Course Vital Signs 08/28/21 15:34 Temperature 97.4 F L Pulse Rate 89 Respiratory 20 Rate Blood Pressure 117/72 [Left] O2 Sat by Pulse 98 Oximetry ED Medical Decision Making - Medical Decision Making Vital Signs 08/28/21 15:34 Temperature 97.4 F L Pulse Rate 89 Respiratory 20 Rate Blood Pressure 117/72 [Left] O2 Sat by Pulse 98 Oximetry Positive right straight leg raise She has no fever or chills. Pain does not wake her up at night. No signs and symptoms of cauda equina. Patient ambulatory neuro intact Medicated with Depo-Medrol in the ER. Have given patient refills of her medications. I explained to her that she should not come back to the ER again for this. Have given her referrals to Ortho neuro and primary care. I have explained to her that sometimes PT and even surgery is needed to alleviate sciatica pain. Patient ambulatory on discharge - Differential Diagnosis Acute on chronic sciatica Critical care attestation.: If time is entered above; I have spent that time in minutes in the direct care of this critically ill patient, excluding procedure time. ED Disposition Clinical Impression: Sciatica Qualifiers: Laterality: right Qualified Code(s): M54.31 - Sciatica, right side Chronic sciatica Qualifiers: Laterality: right Qualified Code(s): M54.31 - Sciatica, right side Disposition: 01 HOME / SELF CARE / HOMELESS Is pt being admited?: No Does the pt Need Aspirin: No Condition: Stable Instructions: Radicular Pain Additional Instructions: Warm baths and compresses. Try to limit the cold air in your hotel Medications as ordered today. If they do not work you need to see an orthopedic or primary care doctor for ongoing care. Sometimes you need physical therapy or even surgery for this problem Diet activity as tolerated. Weight loss will help with your sciatica Stay well-hydrated with water referrals below Prescriptions: Cyclobenzaprine [Flexeril] 10 mg PO TID PRN #10 tablet PRN Reason: Muscle Spasm Cyclobenzaprine [Flexeril] 10 mg PO TID PRN #10 tablet PRN Reason: Muscle Spasm Ibuprofen [Motrin] 800 mg PO Q8HR PRN #30 tablet PRN Reason: Pain, Moderate (4-6) Referrals: AJIT MCGREGOR MD [Staff Physician] - 3-5 Days GISSELLE ZELAYA MD [Staff Physician] - 3-5 Days Time of Disposition: 16:26
[2021-08-28 17:46] VITALS: BP 127/76
== END 2021-08-28 17:45 | disposition home or self-care (01) ==
LOC: ED 15:28
DX: G89.29 Other chronic pain (principal); M54.31 Sciatica, right side; Z79.899 Other long term (current) drug therapy
CPT/HCPCS: 96372; 99282; J1040

== ENCOUNTER 2021-10-24 11:36 | Emergency (ER) | payer SELFPAY ==
[2021-10-24] MEDS ORDERED: HYDROcodone/ACETAMINOPHEN 5-325 MG TAB PO ONE (12:15)
[2021-10-24] MEDS ORDERED: KETOROLAC 10 MG TAB PO ONE (12:15)
[2021-10-24] MEDS ORDERED: diazePAM 5 MG TAB PO ONE (12:15)
--- NOTE | 2021-10-24 12:16 | Event Note ---
ED Screening Note ED Screening Note: 31-year-old female history of sciatica presenting with right hip pain radiating down to her right legs with numbness in her foot and tingling. Symptoms has been there for months, atraumatic , without any red flags. No bladder or bowel disc function previously treated in the emergency department for same, no outpatient follow-up with GI due to insurance issues.. 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 In the setting of a significantly high volume and record number of patients presenting to the emergency department and the fact that we have a limited space to see patients we have implemented the provider in triage protocol this allows an expedited initial exam of patients that might otherwise have left without being seen or who would wait longer than usual to be seen by provider. I interviewed the patient and performed a limited physical exam. This patient is a pulled from the waiting room to triage room for an initial assessment of adrenal studies and then returned to the waiting room pending results of the studies. The ultimate final evaluation and disposition may be performed by another provider depending on room and provider availability. This initial assessment/diagnostic orders/clinical plan/treatment(s) is/are subject to change based on patients health status, clinical progression and re- assessment by fellow clinical providers in the ED. Further treatment and workup at subsequent clinical providers discretion. Patient/guardian urged not to elope from the ED as their condition may be serious if not clinically assessed and managed. Initial orders include:
[2021-10-24] MEDS ORDERED: HYDROcodone/ACETAMINOPHEN 5-325 MG TAB PO NR (15:00)
[2021-10-24] MEDS ORDERED: KETOROLAC 10 MG TAB PO NR (15:00)
[2021-10-24] MEDS ORDERED: dexAMETHasone 4 MG/ML VIAL PO ONE (15:32)
--- NOTE | 2021-10-24 15:48 | Emergency Department Report ---
ED Extremity Problem HPI - General Chief complaint: Extremity Injury, Lower Stated complaint: RT LEG PAIN Time Seen by Provider: 10/24/21 14:57 Source: patient Mode of arrival: Ambulatory Limitations: No Limitations - History of Present Illness Initial comments: 31-year-old black female with no past medical history presents to the emergency department for evaluation of pain to right lower back that radiates down her entire leg into her feet with some numbness and tingling. She states that she has had this pain for several months and has been treated in the emergency department for it previously. She states that the pain keeps reoccurring but she has not been able to follow-up with anyone secondary to insurance issues. She denies fever, dysuria, abdominal pain, nausea, vomiting, and vaginal discharge. She states that pain is worse with some movements and positions. She states that she has taken Flexeril in the past for the pain and had some improvement. MD Complaint: extremity pain -: Gradual, month(s) (4-5) Location: right, lower extremity History of Same: Yes -: No myalgia, No arthralgia, No fever, No associated dyspnea, No associated chest pain Radiation: none Severity scale (0 -10): 10 Quality: burning, aching Consistency: constant Worsens with: other (Certain positions) Associated Symptoms: denies: chest pain, shortness of breath, fever, myalgias, arthralgias, rash - Related Data Previous Rx's Medication Instructions Recorded Last Taken Type Famotidine [Pepcid] 20 mg PO BID 7 Days #14 tablet 04/10/21 Unknown Rx Albuterol Sulfate [Proair 90 mcg IH Q4HR PRN #2 aer.pow.ba 06/13/21 Unknown Rx Respiclick] Cetirizine HCl [Zyrtec 10mg tab] 10 mg PO QDAY #30 tab 06/13/21 Unknown Rx Nicotine Polacrilex [Nicotine Gum] 4 mg BC PRN #1 pack 06/13/21 Unknown Rx Cyclobenzaprine [Flexeril] 10 mg PO TID PRN #10 tablet 08/28/21 Unknown Rx Cyclobenzaprine [Flexeril] 10 mg PO TID PRN #10 tablet 08/28/21 Unknown Rx Ibuprofen [Motrin] 800 mg PO Q8HR PRN #30 tablet 08/28/21 Unknown Rx Lidocaine [Lidoderm] 1 each TP DAILY PRN #10 patch 10/24/21 Unknown Rx Naproxen [Naprosyn] 500 mg PO BID #14 tab 10/24/21 Unknown Rx methOCARBAMOL [Robaxin TAB] 750 mg PO Q8H PRN #30 tab 10/24/21 Unknown Rx methylPREDNISolone [Medrol 4MG 4 mg PO DAILY #1 pack 10/24/21 Unknown Rx DOSEPAK (21 tabs)] Allergies Allergy/AdvReac Type Severity Reaction Status Date / Time No Known Allergies Allergy Verified 08/28/21 15:33 ED Review of Systems ROS: Stated complaint: RT LEG PAIN Other details as noted in HPI Comment: All other systems reviewed and negative Constitutional: denies: chills, fever ENT: denies: congestion Respiratory: denies: shortness of breath Cardiovascular: denies: chest pain, palpitations Gastrointestinal: denies: abdominal pain, nausea, vomiting Genitourinary: denies: urgency, dysuria, frequency, hematuria, discharge Musculoskeletal: back pain. denies: myalgia Skin: denies: rash, lesions Neurological: denies: headache, weakness ED Past Medical Hx - Past Medical History Hx Hypertension: No Hx Congestive Heart Failure: No Hx Diabetes: No Hx Deep Vein Thrombosis: No Hx Renal Disease: No Hx Sickle Cell Disease: No Hx Seizures: No Hx Asthma: No Hx COPD: No Hx HIV: No - Social History Smoking Status: Never Smoker - Medications Home Medications: Home Medications Medication Instructions Recorded Confirmed Last Taken Type Famotidine [Pepcid] 20 mg PO BID 7 Days #14 tablet 04/10/21 Unknown Rx Albuterol Sulfate [Proair 90 mcg IH Q4HR PRN #2 aer.pow.ba 06/13/21 Unknown Rx Respiclick] Cetirizine HCl [Zyrtec 10mg tab] 10 mg PO QDAY #30 tab 06/13/21 Unknown Rx Nicotine Polacrilex [Nicotine Gum] 4 mg BC PRN #1 pack 06/13/21 Unknown Rx Cyclobenzaprine [Flexeril] 10 mg PO TID PRN #10 tablet 08/28/21 Unknown Rx Cyclobenzaprine [Flexeril] 10 mg PO TID PRN #10 tablet 08/28/21 Unknown Rx Ibuprofen [Motrin] 800 mg PO Q8HR PRN #30 tablet 08/28/21 Unknown Rx Lidocaine [Lidoderm] 1 each TP DAILY PRN #10 patch 10/24/21 Unknown Rx Naproxen [Naprosyn] 500 mg PO BID #14 tab 10/24/21 Unknown Rx methOCARBAMOL [Robaxin TAB] 750 mg PO Q8H PRN #30 tab 10/24/21 Unknown Rx methylPREDNISolone [Medrol 4MG 4 mg PO DAILY #1 pack 10/24/21 Unknown Rx DOSEPAK (21 tabs)] ED Physical Exam - General Limitations: No Limitations General appearance: alert, in no apparent distress - Head Head exam: Present: atraumatic, normocephalic - Eye Eye exam: Present: normal appearance. Absent: conjunctival injection, periorbital swelling, periorbital tenderness - Neck Neck exam: Present: normal inspection, full ROM. Absent: tenderness, lymphadenopathy - Respiratory Respiratory exam: Present: normal lung sounds bilaterally. Absent: respiratory distress, wheezes, rales, rhonchi, stridor, chest wall tenderness - Cardiovascular Cardiovascular Exam: Present: regular rate, normal heart sounds - GI/Abdominal GI/Abdominal exam: Present: soft, normal bowel sounds. Absent: distended, tenderness, guarding, rebound, rigid - Extremities Exam Extremities exam: Present: normal inspection - Expanded Lower Extremity Exam Right Hip exam: Present: normal inspection. Absent: tenderness Upper Leg exam: Present: normal inspection Knee exam: Present: normal inspection Lower Leg exam: Present: normal inspection Ankle exam: Present: normal inspection Foot/Toe exam: Present: normal inspection Neuro vascular tendon exam: Present: no vascular compromise. Absent: pulse deficit, abnormal cap refill, motor deficit, extremity cold to touch, pallor, foot drop - Back Exam Back exam: Present: normal inspection. Absent: CVA tenderness (R), CVA tenderness (L) - Expanded Back Exam Expanded Back exam: Absent: saddle anesthesia Back exam: Positive Straight Leg Raise: Right - Neurological Exam Neurological exam: Present: alert, oriented X3, CN II-XII intact, reflexes normal. Absent: motor sensory deficit - Psychiatric Psychiatric exam: Present: normal affect, normal mood - Skin Skin exam: Present: warm, dry, intact, normal color ED Course Vital Signs 10/24/21 12:16 Temperature 97.4 F L Pulse Rate 84 Respiratory 18 Rate Blood Pressure 104/72 O2 Sat by Pulse 97 Oximetry ED Medical Decision Making - Medical Decision Making 31-year-old black female with no past medical history presents to the emergency department for evaluation of pain to right lower back that radiates down her entire leg into her feet with some numbness and tingling. She states that she has had this pain for several months and has been treated in the emergency department for it previously. She states that the pain keeps reoccurring but she has not been able to follow-up with anyone secondary to insurance issues. She denies fever, dysuria, abdominal pain, nausea, vomiting, and vaginal discharge. She states that pain is worse with some movements and positions. She states that she has taken Flexeril in the past for the pain and had some improvement. Physical exam and symptoms consistent with sciatic nerve pain. Patient be discharged home with Medrol Dosepak, Robaxin, naproxen, and Lidoderm patch to use as directed. She is advised to follow-up with her primary care provider or orthopedics for further evaluation and management. She is advised to return to the emergency department as needed. She verbalizes understanding of and agreement with plan of care. Critical care attestation.: If time is entered above; I have spent that time in minutes in the direct care of this critically ill patient, excluding procedure time. ED Disposition Clinical Impression: Right sciatic nerve pain Disposition: 01 HOME / SELF CARE / HOMELESS Is pt being admited?: No Does the pt Need Aspirin: No Condition: Stable Instructions: Sciatica, [id number], Sciatica Rehab-SportsMed Additional Instructions: Take medications as prescribed. Follow-up with your primary care provider or orthopedics for further evaluation and management. Return to the emergency department as needed. Prescriptions: Lidocaine [Lidoderm] 1 each TP DAILY PRN #10 patch PRN Reason: Pain, Moderate (4-6) methylPREDNISolone [Medrol 4MG DOSEPAK (21 tabs)] 4 mg PO DAILY #1 pack Naproxen [Naprosyn] 500 mg PO BID #14 tab methOCARBAMOL [Robaxin TAB] 750 mg PO Q8H PRN #30 tab PRN Reason: Pain, Moderate (4-6) Referrals: AIJT MCGREGOR MD [Staff Physician] - 3-5 Days GISSELLE ZELAYA MD [Staff Physician] - 3-5 Days Forms: Work/School Release Form(ED) Time of Disposition: 15:53
[2021-10-24] MEDS ORDERED: diazePAM 5 MG TAB PO SCH (16:00)
[2021-10-24 16:54] VITALS: BP 128/74
== END 2021-10-24 16:53 | disposition home or self-care (01) ==
LOC: ED 11:36
DX: M54.30 Sciatica, unspecified side (principal); Z79.899 Other long term (current) drug therapy
CPT/HCPCS: 99282

== ENCOUNTER 2021-11-12 16:44 | Emergency (ER) | payer SELFPAY ==
[2021-11-12] MEDS ORDERED: dexAMETHasone 20 MG/5 ML VIAL IM ONE (20:25)
[2021-11-12] MEDS ORDERED: KETOROLAC 30 MG/1 ML INJ IM ONE (20:25)
--- NOTE | 2021-11-12 20:40 | Emergency Department Report ---
ED General Adult HPI - General Chief complaint: Extremity Problem,Nontraumatic Stated complaint: RT LEG PAIN X 6 MONTHS Time Seen by Provider: 11/12/21 20:25 Source: patient Mode of arrival: Stretcher Limitations: No Limitations - History of Present Illness Initial comments: Patient 31-year-old female who presents for low back pain radiating to right low er extremity for the past 6 months intermittently. Patient states 5/10 pain for the past 2 weeks. Usual treatment is steroids NSAIDs and muscle relaxants. Patient states unable to see Ortho in the past 2 months. Patient denies new fall injury or trauma. There has been no loss or decrease in bowel or bladder function. Patient is amatory with moderate increase in pain per patient. No weakness paralysis or new injury. Pain exacerbated by prolonged standing and walking. Pain is relieved by rest and offloading. - Related Data Previous Rx's Medication Instructions Recorded Last Taken Type Famotidine [Pepcid] 20 mg PO BID 7 Days #14 tablet 04/10/21 Unknown Rx Albuterol Sulfate [Proair 90 mcg IH Q4HR PRN #2 aer.pow.ba 06/13/21 Unknown Rx Respiclick] Cetirizine HCl [Zyrtec 10mg tab] 10 mg PO QDAY #30 tab 06/13/21 Unknown Rx Nicotine Polacrilex [Nicotine Gum] 4 mg BC PRN #1 pack 06/13/21 Unknown Rx Cyclobenzaprine [Flexeril] 10 mg PO TID PRN #10 tablet 08/28/21 Unknown Rx Cyclobenzaprine [Flexeril] 10 mg PO TID PRN #10 tablet 08/28/21 Unknown Rx Ibuprofen [Motrin] 800 mg PO Q8HR PRN #30 tablet 08/28/21 Unknown Rx Lidocaine [Lidoderm] 1 each TP DAILY PRN #10 patch 10/24/21 Unknown Rx Naproxen [Naprosyn] 500 mg PO BID #14 tab 10/24/21 Unknown Rx methOCARBAMOL [Robaxin TAB] 750 mg PO Q8H PRN #30 tab 10/24/21 Unknown Rx methylPREDNISolone [Medrol 4MG 4 mg PO DAILY #1 pack 10/24/21 Unknown Rx DOSEPAK (21 tabs)] Cyclobenzaprine [Flexeril] 10 mg PO TID PRN #30 tab 11/12/21 Unknown Rx Naproxen 500 mg PO BID PRN #30 tab 11/12/21 Unknown Rx methylPREDNISolone [Medrol 4MG 4 mg PO DAILY #1 pack 11/12/21 Unknown Rx DOSEPAK (21 tabs)] Allergies Allergy/AdvReac Type Severity Reaction Status Date / Time No Known Allergies Allergy Verified 11/12/21 16:48 ED Review of Systems ROS: Stated complaint: RT LEG PAIN X 6 MONTHS Other details as noted in HPI Constitutional: denies: chills, fever Eyes: denies: eye pain, eye discharge, vision change ENT: denies: ear pain, throat pain Respiratory: denies: cough, shortness of breath, wheezing Cardiovascular: denies: chest pain, palpitations Endocrine: no symptoms reported Gastrointestinal: denies: abdominal pain, nausea, diarrhea Genitourinary: denies: urgency, dysuria, discharge Musculoskeletal: back pain, myalgia. denies: joint swelling, arthralgia Skin: denies: rash, lesions Neurological: denies: headache, weakness, paresthesias Psychiatric: denies: anxiety, depression Hematological/Lymphatic: denies: easy bleeding, easy bruising ED Past Medical Hx - Past Medical History Hx Hypertension: No Hx Congestive Heart Failure: No Hx Diabetes: No Hx Deep Vein Thrombosis: No Hx Renal Disease: No Hx Sickle Cell Disease: No Hx Seizures: No Hx Asthma: No Hx COPD: No Hx HIV: No - Social History Smoking Status: Never Smoker - Medications Home Medications: Home Medications Medication Instructions Recorded Confirmed Last Taken Type Famotidine [Pepcid] 20 mg PO BID 7 Days #14 tablet 04/10/21 Unknown Rx Albuterol Sulfate [Proair 90 mcg IH Q4HR PRN #2 aer.pow.ba 06/13/21 Unknown Rx Respiclick] Cetirizine HCl [Zyrtec 10mg tab] 10 mg PO QDAY #30 tab 06/13/21 Unknown Rx Nicotine Polacrilex [Nicotine Gum] 4 mg BC PRN #1 pack 06/13/21 Unknown Rx Cyclobenzaprine [Flexeril] 10 mg PO TID PRN #10 tablet 08/28/21 Unknown Rx Cyclobenzaprine [Flexeril] 10 mg PO TID PRN #10 tablet 08/28/21 Unknown Rx Ibuprofen [Motrin] 800 mg PO Q8HR PRN #30 tablet 08/28/21 Unknown Rx Lidocaine [Lidoderm] 1 each TP DAILY PRN #10 patch 10/24/21 Unknown Rx Naproxen [Naprosyn] 500 mg PO BID #14 tab 10/24/21 Unknown Rx methOCARBAMOL [Robaxin TAB] 750 mg PO Q8H PRN #30 tab 10/24/21 Unknown Rx methylPREDNISolone [Medrol 4MG 4 mg PO DAILY #1 pack 10/24/21 Unknown Rx DOSEPAK (21 tabs)] Cyclobenzaprine [Flexeril] 10 mg PO TID PRN #30 tab 11/12/21 Unknown Rx Naproxen 500 mg PO BID PRN #30 tab 11/12/21 Unknown Rx methylPREDNISolone [Medrol 4MG 4 mg PO DAILY #1 pack 11/12/21 Unknown Rx DOSEPAK (21 tabs)] ED Physical Exam - General Limitations: No Limitations General appearance: alert, in no apparent distress - Head Head exam: Present: atraumatic, normocephalic - Eye Eye exam: Present: normal appearance, EOMI Pupils: Present: normal accommodation - ENT ENT exam: Present: mucous membranes moist - Neck Neck exam: Present: normal inspection, full ROM. Absent: tenderness - Respiratory Respiratory exam: Present: normal lung sounds bilaterally. Absent: respiratory distress, wheezes - Cardiovascular Cardiovascular Exam: Present: regular rate, normal rhythm, normal heart sounds. Absent: systolic murmur, diastolic murmur, rubs, gallop - GI/Abdominal GI/Abdominal exam: Present: soft, normal bowel sounds - Rectal Rectal exam: Present: deferred - Extremities Exam Extremities exam: Present: normal inspection, full ROM, normal capillary refill. Absent: tenderness, pedal edema - Back Exam Back exam: Present: full ROM, muscle spasm. Absent: tenderness, CVA tenderness (R), CVA tenderness (L), paraspinal tenderness, vertebral tenderness - Expanded Back Exam Expanded Back exam: Absent: saddle anesthesia Back exam: Sciatic Notch Tenderness: Right, Positive Straight Leg Raise: Right, Negative Straight Leg Raising: Left - Neurological Exam Neurological exam: Present: alert, oriented X3, CN II-XII intact, normal gait, reflexes normal. Absent: motor sensory deficit - Expanded Neurological Exam Expanded Patient oriented to: Present: person, place, time Speech: Present: fluid speech Motor strength exam: RUE: 5, LUE: 5, RLE: 5, LLE: 5 DTR: ankle (R): 1+, ankle (L): 1+ Best Eye Response (Rhonda): (4) open spontaneously Best Motor Response (Rhonda): (6) obeys commands Best Verbal Response (Rhonda): (5) oriented Rhonda Total: 15 - Psychiatric Psychiatric exam: Present: normal affect, normal mood - Skin Skin exam: Present: warm, dry, intact, normal color. Absent: rash ED Course Vital Signs 11/12/21 16:47 Pulse Rate 83 Respiratory 16 Rate Blood Pressure 125/72 [Left] O2 Sat by Pulse 98 Oximetry ED Medical Decision Making - Medical Decision Making This is low back strain diagnosis concurs with sciatica. Plan DC to home refill medication as prescribed, follow-up with Ortho in 2 to 3 days. Return to emergency department should symptoms worsen. Patient verbalized agreement understanding with discharge plan. Patient DC'd home in stable condition at this time. Critical care attestation.: If time is entered above; I have spent that time in minutes in the direct care of this critically ill patient, excluding procedure time. ED Disposition Clinical Impression: Low back pain Qualifiers: Chronicity: acute Back pain laterality: right Sciatica presence: with sciatica Sciatica laterality: sciatica of right side Qualified Code(s): M54.41 - Lumbago with sciatica, right side Disposition: 01 HOME / SELF CARE / HOMELESS Is pt being admited?: No Does the pt Need Aspirin: No Condition: Stable Instructions: Back Exercises, [id number] Additional Instructions: Take medication as prescribed, back exercises as directed, follow-up with orthopedics in 2 to 3 days return to emergency department should symptoms worsen. Prescriptions: Cyclobenzaprine [Flexeril] 10 mg PO TID PRN #30 tab PRN Reason: Muscle Spasm methylPREDNISolone [Medrol 4MG DOSEPAK (21 tabs)] 4 mg PO DAILY #1 pack Naproxen 500 mg PO BID PRN #30 tab PRN Reason: pain Referrals: GISSELLE ZELAYA MD [Staff Physician] - 3-5 Days Forms: Work/School Release Form(ED) Time of Disposition: 20:42
[2021-11-12 23:22] VITALS: BP 131/73
== END 2021-11-12 23:22 | disposition home or self-care (01) ==
LOC: ED 16:44
DX: M54.50 Low back pain, unspecified (principal); Z79.899 Other long term (current) drug therapy
CPT/HCPCS: 96372; 99283; J1100; J1885